=== PATIENT | female | born 1995 | race Hispanic/Latino ===

== ENCOUNTER 2018-05-11 09:20 | Outpatient (CLI) | payer BC ==
--- NOTE | 2018-05-11 10:49 | RAD ---
LUMBAR SPINE RADIOGRAPHIC SERIES THREE VIEWS: Indication: Lumbar pars defect. FINDINGS: Lateral views of the lumbar spine are submitted without frontal view provided. There is lucency of the L5 pars region compatible with pars defect. Associated trace spondylolisthesi s of L5-S1 is present. No compression deformity. IMPRESSION: L5 pars defect with trace L5-S1 level spondylolisthesis. When comparing flexion and extension views, no significant translational motion is identified. POS: [facility]
== END 2018-05-11 09:21 | disposition home or self-care (01) ==
LOC: RAD 09:20
PROVIDERS: ATTEND Nurse Practitioner Family
DX: M43.06 Spondylolysis, lumbar region (principal)
CPT/HCPCS: 72100